=== PATIENT | male | born 1985 | race Caucasian/White ===

== ENCOUNTER → 2022-03-26 | Outpatient (CLI) | payer OTHER, SELFPAY ==
--- NOTE | 2022-03-26 07:18 | MRI_ITS ---
STUDY: MRI RIGHT ANKLE WITH AND WITHOUT CONTRAST REASON FOR EXAM: Male, 36 years old.03/23/22 had a stick puncture anterior rt ankle ,, had slivers removed, still has severe pain , swelling, redness foot, unable to move big toe,, area marked on screen saves RT ANKLE INJURY TECHNIQUE: Standarized fat and water weighted pulse sequences were obtained in all 3 orthogonal plane pre and post intravenous administration of IV 22ml dotarem. COMPARISON: None. FINDINGS: There is mild to moderate subcutaneous edema on the lateral side of the lower leg and ankle. No discrete subcutaneous or intramuscular abscess is present. No bone marrow edema or cortical erosion or intramedullary signal abnormality is seen. No evidence of osteomyelitis. A small puncture wound is seen in the anterior subcutaneous tissues above the distal one third tibia, with small amounts of subcutaneous air in the overlying soft tissues. There is a large full-thickness tear of the extensor hallucis longus tendon with retraction, edema, and small amounts of fluid around the tendon at the level of the anterior tibiotalar articulation. Probable component of infectious tenosynovitis, with fluid distention around the torn tendon and in close proximity to the puncture wound). Mild enhancement around the torn tendon and site of a puncture is indicative of cellulitis and inflammatory/infectious changes. No discrete abscess is seen. There is no evidence of osteomyelitis. Normal posterior tibialis tendon. Normal flexor digitorum longus tendon. Normal flexor hallucis longus tendon. Normal peroneus longus and brevis tendons. Normal tibialis anterior tendon. Normal extensor digitorum longus tendons. Normal Achilles tendon and teno-osseous insertion. Normal plantar fascia. Normal plantar calcaneal tubercles. Normal intrinsic muscles of the rearfoot. Normal distal tibiofibular syndesmotic ligamentous complex. Normal lateral ligamentous complex. Normal subtalar ligaments and sinus tarsi. Normal deltoid ligamentous complexes. Normal plantar calcaneonavicular (spring) ligament. Normal tibiotalar articulation. Normal talar dome. Normal subtalar articulations. Normal talonavicular articulation. Normal calcaneocuboid articulation. Normal navicular-cuneiform articulations. MRI/Lower Ext Joint Only W/WO Cont IMPRESSION: Large full-thickness tear of the extensor hallucis longus tendon 1. A small puncture wound is seen in the anterior subcutaneous tissues above the distal one third tibia, with small amounts of subcutaneous air in the overlying soft tissues. There is a large full-thickness tear of the extensor hallucis longus tendon with retraction, edema, and small amounts of fluid around the tendon at the level of the anterior tibiotalar articulation. 2. Probable component of infectious tenosynovitis, with fluid distention around the torn tendon and in close proximity to the puncture wound). 3. Mild enhancement around the torn tendon and site of a puncture is indicative of cellulitis and inflammatory/infectious changes. No discrete abscess is seen. Electronically Signed: Santosh Chavez MD at 10:04 EDT ,
[2022-03-26 07:42] LABS: Erythrocyte Sedimentation Rate 18 mm/hr (0-20)
[2022-03-26 07:43] LABS: Absolute Lymphocyte Count 1.53 X10^3/uL (0.83-4.51); Absolute Neutrophil Count 6.7 X10^3/uL (2.0-7.7); Basophil# 0.05 X10^3/uL; Basophil% 0.5 % (0-1); Eosinophil# 0.29 X10^3/uL; Eosinophils% 3.1 % (0-5); Hematocrit 41.8 % (40-54); Hemoglobin 14.3 g/dL (13.0-16.5); Lymphocyte # 1.53 X10^3/ul (0.83-4.51); Lymphocyte % 16.1 % (19-41); Mean Corp Hgb Conc 34.2 g/dL (32-36); Mean Corpuscular Hgb 29.5 pg (27.0-32.0); Mean Corpuscular Volume 86.4 fL (80-94); Mean Platelet Vol. 9.8 fl (6.2-12.0); Monocyte# 0.89 X10^3/uL; Monocyte% 9.4 % (0-10); NRBC Flagged by Analyzer 0 % (0-5); Neutrophil # 6.68 X10^3/uL (2.7-7.7); Neutrophil % 70.5 % (47-70); Platelet Count 224 K/mm3 (150-450); RBC Distribution Width CV 12.7 % (11.6-14.6); RBC Distribution Width SD 39.8 fl (35.1-43.9); Red Blood Count 4.84 M/mm3 (4.6-6.2); White Blood Count 9.5 K/mm3 (4.4-11.0)
== END | disposition home or self-care (01) ==
PROVIDERS: Visit Provider Family Medicine
DX: S99.911D Unspecified injury of right ankle, subsequent encounter (principal)
CPT/HCPCS: 36415; 73723; 85025; 85652; 86140; A9575